=== PATIENT | female | born 2000 | race Caucasian/White ===

== ENCOUNTER 2023-01-01 15:53 | Emergency (ER) | payer OTHER ==
[~2023-01-01] VITALS: Ht 160 cm; Wt 59.4 kg
[2023-01-01 15:59] VITALS: BP 109/75; PULSE 78; RESP 16; TEMP 97.8; O2SAT 98
== END 2023-01-01 17:50 | disposition home or self-care (01) ==
LOC: MED 15:53
DX: R51.9 Headache, unspecified (principal); Z79.899 Other long term (current) drug therapy
CPT/HCPCS: 99284